=== PATIENT | male | born 1995 | race African-American/Black ===

== ENCOUNTER 2016-07-20 00:31 | Emergency (ER) | payer OTHER ==
--- NOTE | ~2016-07-20 | CR21 ---
[facility] A Service of [facility] RADIOLOGY TEXT RESULTS PATIENT: DEYANIRA GONZALEZ LOCATION: [facility] : [birth year] UNIT #: [id number] AGE: [address]: Azar Escobar MD SEX: M ORDER DR: [id number] [facility] [address] [place], [place] [address] [id number] E MR#: [id number] Acc #: [id number] NAME: DEYANIRA GONZALEZ : 1995 SEX: M STUDY DATE/TIME: 07/20/2016 00:42 UNIT: RONY ROOM: STUDY DESCRIPTION: CR Ankle Min 3 Views Rt Attending Physician: Azar Escobar M.D. Ordering Physician: Ed Tan Kent M.D. Primary Care Physician: Primary Care Physician No MEDICAL IMAGING REPORT This report is preliminary unless electronic signature is present EXAM Right ankle, 07/20 at 00:42 INDICATIONS Pain and swelling laterally after twisting injury playing basketball today. FINDINGS AP, lateral, and oblique projections of the ankle show satisfactory integrity of the joint mortise with a smooth articular surface. There is no identifiable fracture, dislocation, or radiopaque foreign body. IMPRESSION Normal right ankle. Dictated by... Warren Jessica Jr., M.D. THIS IS AN ELECTRONICALLY VERIFIED REPORT Warren Jessica Jr., M.D. at 07/20/2016 5:35 AM [place] TD: 07/20/2016 02:31 JOB #: [id number] MEDICAL IMAGING REPORT Page 1 of 1 COPY
--- NOTE | ~2016-07-20 | CR127 ---
[facility] A Service of [facility] RADIOLOGY TEXT RESULTS PATIENT: DEYANIRA GONZALEZ LOCATION: [facility] : 95 UNIT #: [id number] AGE: [address]: Azar Escobar MD SEX: M ORDER DR: [id number] [facility] [address] [place] [address] [place], [place] [address] [id number] E MR#: [id number] #: [id number] NAME: DEYANIRA GONZALEZ : 1995 SEX: M STUDY DATE/TIME: 07/20/2016 00:45 UNIT: [facility] ROOM: STUDY DESCRIPTION: CR Foot Complete Min 3 View Rt Attending Physician: Azar Escobar M.D. Ordering Physician: Ed Tan Kent M.D. Primary Care Physician: Primary Care Physician No MEDICAL IMAGING REPORT This report is preliminary unless electronic signature is present EXAM Right foot, 07/20 at 00:45 INDICATIONS Pain and swelling laterally after twisting injury playing basketball today. FINDINGS The tarsal, metatarsal, and phalangeal elements are all anatomically normal in position and alignment. There are no articular defects. No fractures or radiopaque foreign bodies in the soft tissues are apparent. IMPRESSION Normal right foot. Dictated by... Warren Jessica Jr., M.D. THIS IS AN ELECTRONICALLY VERIFIED REPORT Warren Jessica Jr., M.D. at 07/20/2016 5:35 AM [place] TD: 07/20/2016 02:33 JOB #: [id number] MEDICAL IMAGING REPORT Page 1 of 1 COPY
[~2016-07-20 00:31] MED LIST: MOTRIN400 M1 PO; NAPROSYN500 MG PO; NO MEDICATIONS
== END 2016-07-20 01:40 | disposition home or self-care (01) ==
LOC: CED 00:31
DX: S93.491A Sprain of other ligament of right ankle, initial encounter (principal); F17.200 Nicotine dependence, unspecified, uncomplicated; X50.1XXA Overexertion from prolonged static or awkward postures, initial encounter; Y92.830 Public park as the place of occurrence of the external cause
CPT/HCPCS: 29540; 73610; 73630; 99283